=== PATIENT | female | born 2000 | race Caucasian/White ===

== ENCOUNTER 2019-03-24 14:17 | Outpatient (CLI) | payer BC, SELFPAY ==
--- NOTE | 2019-03-24 15:44 | DI.US_ITS ---
SYMPTOMS/DIAGNOSIS: ROUND, MOBILE, PALPABLE BREAST MASS, 11 O'CLOCK, 3 CM FROM AREOLAR BORDER RIGHT BREAST ULTRASOUND: There are no prior comparison exams. The patient notes a palpable abnormality in the upper outer quadrant of the right breast. This corresponds to a circumscribed homogeneously hypoechoic lesion measuring 2.6 x 1.5 x 2.6 cm. There is increased through transmission. There is no significant vascularity. There are no associated calcifications. 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 A six-month follow-up ultrasound could be considered.
== END 2019-03-24 14:37 ==
PROVIDERS: Visit Provider Nurse Practitioner Adult Health
DX: N63.11 Unspecified lump in the right breast, upper outer quadrant (principal); D24.1 Benign neoplasm of right breast
CPT/HCPCS: 76642